=== PATIENT | female | born 1960 | race Hispanic/Latino ===

== ENCOUNTER 2017-01-17 13:56 | Outpatient (CLI) | payer OTHER ==
--- NOTE | 2017-01-17 15:07 | Ultrasound Report ---
Pelvic sonogram: Next History: Vaginal pain. Findings: Patient is status post hysterectomy. Right and left ovary not visualized. No mass identified the adnexa. No fluid in the cul-de-sac. Impression: Findings as detailed above
--- NOTE | 2017-01-18 07:40 | Ultrasound Report ---
ULTRASOUND TRANSVAGINAL HISTORY: Vaginal pain. FINDINGS: Transvaginal grayscale ultrasound imaging was performed. Total hysterectomy changes are suspected. The vaginal cuff is unremarkable. No pelvic fluid collection, mass or cyst is identified. IMPRESSION: No abnormality identified.
== END 2017-01-17 13:57 | disposition home or self-care (01) ==
LOC: US 13:56
DX: L29.8 Other pruritus (principal); R10.2 Pelvic and perineal pain; R32 Unspecified urinary incontinence; Z90.710 Acquired absence of both cervix and uterus
CPT/HCPCS: 76830; 76856